=== PATIENT | female | born 1965 | race Two or more races ===

== ENCOUNTER 2022-04-25 23:03 | Emergency (ER) | payer OTHER ==
[2022-04-25 23:13] VITALS: BMI 29.0
[2022-04-26 00:52] VITALS: BP 150/87; PULSE 89; RESP 12; TEMP 97.6
== END 2022-04-26 00:52 | disposition short-term general hospital (02) ==
LOC: JER 23:03
DX: T58.91XA Toxic effect of carbon monoxide from unspecified source, accidental (unintentional), initial encounter (principal)
CPT/HCPCS: 93005; 93010; 99283-25